=== PATIENT | male | born 1985 ===

== ENCOUNTER 2020-10-19 13:08 | Emergency (ER) | payer OTHER ==
[~2020-10-19] VITALS: Ht 180.3 cm; Wt 122.9 kg
[2020-10-19 13:14] VITALS: BP 135/85
[2020-10-19] MEDS ORDERED: dexamethasone sod phosphate 10mg/ml inj IM STA (13:41)
[2020-10-19] MEDS ORDERED: ORPH100T2 PO (13:44)
[2020-10-19] MEDS ORDERED: ketorolac trometh inj. 60 MG/2 ML VIAL IM ONE (13:45)
[2020-10-19] MEDS ORDERED: orphenadrine citrate 60mg/2ml inj. IM ONE (13:45)
[2020-10-19] MEDS ORDERED: HYDROcodone/acetaminophen 10/325mg tab PO ONE (13:45)
== END 2020-10-19 14:00 | disposition home or self-care (01) ==
LOC: ER 13:08
DX: M54.42 Lumbago with sciatica, left side (principal); M54.41 Lumbago with sciatica, right side; G89.29 Other chronic pain; R53.1 Weakness; M62.830 Muscle spasm of back; Z88.0 Allergy status to penicillin; Z88.2 Allergy status to sulfonamides; Z88.1 Allergy status to other antibiotic agents; Z88.8 Allergy status to other drugs, medicaments and biological substances; Z79.899 Other long term (current) drug therapy
CPT/HCPCS: 96372; 99284; J1100; J1885; J2360